=== PATIENT | male | born 1945 | race Caucasian/White ===

== ENCOUNTER 2022-02-27 18:33 | Inpatient (IN) | payer OTHER ==
--- NOTE | 2022-02-27 20:30 | RAD REPORT ---
EXAM DESCRIPTION: RAD - Chest Single View - 02/27/2022 8:17 pm CLINICAL HISTORY: COUGH COMPARISON: None TECHNIQUE: AP portable chest image was obtained 02/27/2022 8:17 pm . FINDINGS: Lungs are clear. Heart and vasculature are normal. No measurable pleural effusion and no p neumothorax. No acute bony abnormality seen. No acute aortic findings suspected. IMPRESSION: No acute cardiopulmonary process.
--- NOTE | 2022-02-27 20:41 | RAD REPORT ---
EXAM DESCRIPTION: CT - Stone Protocol - 02/27/2022 8:30 pm CLINICAL HISTORY: Flank pain, kidney stone suspected COMPARISON: No comparisons TECHNIQUE: Axial 3 mm thick images were obtained without oral or IV contrast. The [id number] span s the entirety of the system including uppermost abdomen and lung bases. All CT scans are performed using dose optimization technique as appropriate and may include automated exposure control or mA/KV adjustment according to patient size. FINDINGS: No acute lung base findings. Dense coronary artery calcifications are present. No cardiome dennis or pericardial effusion. Mild to moderate symmetric bilateral gynecomastia noted. No hydronephrosis is present and no obstructing ureteral calculi. Renal vascular calcifications are p resent. No suspicious renal masses. Isodense masses and pyelonephritis are not excluded on a stone pr otocol CT scan. No significant adrenal finding. Partially filled urinary bladder shows no suspicious finding. Prostate gland is prominent. No adjacent edema, stranding or lymphadenopathy. Prominent pros auguste gland projects into the bladder base. Imaged portions of the liver, spleen and pancreas show no suspicious findings on non-contrast imaging . No gallbladder or biliary tree abnormality identified. No suspicious bowel findings. No mass or bulky lymphadenopathy. Small incidental umbilical fat only hernia present. Moderate bilate ral fat filled inguinal hernias are present. No free air, free fluid or inflammatory stranding. No significant bony abnormality. IMPRESSION: Noncontrast CT abdomen and pelvis examination shows no acute finding. Isodense masses and pyelonephritis are not excluded on stone protocol. Cystitis or prostatitis also n ot excluded. Isodense masses and pyelonephritis are not excluded on stone protocol technique.
[2022-02-27] MEDS ORDERED: NA CHLORIDE 0.9% 1,000 ML ONE ×2 (20:58→22:05)
[2022-02-27] MEDS ORDERED: CEFTRIAXONE 1000 MG/VIAL ONE ×2 (20:58→22:05)
[2022-02-27 21:52] LABS: Urine Blood 3+ (Negative); Urine Glucose Negative (Negative); Urine Protein 2+ (Negative)
[2022-02-27 22:06] LABS: Protime INR 1.26
[2022-02-27 22:09] LABS: Calcium Oxalate Crystals- Ur FEW (NONE SEEN); Urine Bacteria LOADED /HPF (NONE SEEN)
[2022-02-27 22:10] LABS: Urine Mucus SLIGHT /HPF (NONE SEEN)
[2022-02-27 22:12] LABS: Absolute Lymphocytes (CBC) 1.2 K/uL (0.7-4.9); Hematocrit 36.4 % (39.6-49.0); Lymphocytes % 7.7 % (15.3-44.8); MCV 86.9 fL (80-100); MPV 9.4 fL (7.6-11.3); RBC Red Blood Cell Count 4.19 M/uL (4.33-5.43)
[2022-02-27 22:22] LABS: Albumin 3.6 g/dL (3.4-5.0); Bilirubin Direct 0.2 mg/dL (0-0.2); Bilirubin Total 0.9 mg/dL (0.2-1.0); Magnesium 1.9 mg/dL (1.8-2.4); Potassium 3.8 mmol/L (3.5-5.1); Protein, Total 7.9 g/dL (6.4-8.2); Troponin High Sensitivity 10.8 pg/mL (<58.9)
--- NOTE | 2022-02-27 22:33 | ER ---
Nurse's Notes [facility] Name: Shabbir Gaines Age: 76 yrs Sex: Male : 1945 Arrival Date: 02/27/2022 Time: 19:01 Bed 2 Private MD: Diagnosis: Weakness;Elevated white blood cell count;Altered mental status, unspecified;Acute cystitis;UTI/ Urinary tract infection, site not specified Presentation: 02/27 19:28 Chief complaint: Spouse and/or significant other states: Per Grandson, patient is ke1 acting like when he is dehydrated, refuse to drink water and drinks only soda, lightheaded and increase weakness on ambulation. 19:28 Method Of Arrival: EMS ke 19:39 Coronavirus screen: Vaccine status: Patient reports being unvaccinated. Ebola Screen: ke1 No symptoms or risks identified at this time. No acute neurological deficit is noted. Initial Sepsis Screen: Does the patient meet any 2 criteria? No. Patient's initial sepsis screen is negative. Does the patient have a suspected source of infection? No. Patient's initial sepsis screen is negative. Risk Assessment: Do you want to hurt yourself or someone else? Patient reports no desire to harm self or others. Onset of symptoms was February 26, 2022 at 17:00. 19:39 Acuity: JOSE MIGUEL 3 ke1 Triage Assessment: 19:43 The onset of the patients symptoms was February 26, 2022 at 18:00. General: Appears in no ke1 apparent distress. Behavior is calm, cooperative. Pain: Denies pain. Neuro: Level of Consciousness is awake, alert, Oriented to person, place, Reports . 19:44 Respiratory: Airway is patent Respiratory effort is even, unlabored. ke1 Historical: - Allergies: 19:41 PENICILLINS; ke1 - PMHx: 19:41 Diabetes mellitus; stroke; Hypertensive disorder; ke1 19:44 Dementia; ke1 - Immunization history:: Adult Immunizations not up to date. - Social history:: Smoking status: Patient/guardian denies using tobacco, the patient reports quitting approximately 30 years ago. Screenin:08 Abuse screen: Denies threats or abuse. Nutritional screening: No deficits noted. ke1 Tuberculosis screening: No symptoms or risk factors identified. Fall Risk No fall in past 12 months (0 pts). Secondary diagnosis (15 points) dementia, IV access (20 points). Ambulatory Aid- Crutches/Cane/Walker (15 pts). Gait- Weak (10 pts.). Mental Status- Oriented to own ability (0 pts). Total Chavis Fall Scale indicates High Risk Score (45 or more points). Fall prevention measures have been instituted. Side Rails Up X 2 Frequent Obs/Assessments Occuring Family Present and informed to notify staff if the need to leave the bedside. Assessment: 22:26 Reassessment: Patient and/or family updated on plan of care and expected duration. Pain ke1 level reassessed. Patient is alert, oriented x 3, equal unlabored respirations, skin warm/dry/pink. Patient denies pain at this time. 23:30 Reassessment: No changes from previously documented assessment. ke1 Vital Signs: 19:39 BP 120 / 63; Pulse 90; Resp 17; Temp 99.6; Pulse Ox 96% on R/A; Weight 72.57 kg; Height ke1 5 ft. 5 in. (165.10 cm); Pain 0/10; 23:57 BP 126 / 71; Pulse 86; Resp 17; Temp 99.1; Pulse Ox 95% ; Pain 0/10; ke1 19:39 Body Mass Index 26.63 (72.57 kg, 165.10 cm) formerly [facility] ED Course: 19:01 Patient arrived in ED. formerly [facility] 19:17 Shabbir Palmer MD is Attending Physician. [facility] 19:28 Adonis Mar, GHAZAL is Primary Nurse. ke1 19:41 Triage completed. ke1 20:19 XRAY Chest (1 view) In Process Unspecified. EDMS 20:32 CT Stone Protocol In Process Unspecified. EDMS 22:00 Arm band placed on. ke1 22:06 Inserted saline lock: in left EJ, using aseptic technique. ,using aseptic technique. by ke1 MD palmer. 22:32 Mak Francois MD is Hospitalizing Provider. [facility] 02/28 00:00 No provider procedures requiring assistance completed. Patient admitted, IV remains in ke1 place. 00:01 Bed in low position. Call light in reach. Side rails up X 1. Side rails up X2. ke1 Administered Medications: 02/27 22:07 Drug: Rocephin (cefTRIAXone) 1 grams Route: IV; Rate: per protocol; Site: left jugular; ke1 22:10 Follow up: IV Status: Completed infusion ke1 22:07 Drug: NS 0.9% 1000 ml Route: IV; Rate: 1 bolus; Site: left jugular; ke1 23:46 Follow up: IV Status: Completed infusion ke1 Medication: 02/28 00:01 VIS not applicable for this client. ke1 Outcome: 02/27 22:33 Decision to Hospitalize by Provider. kwesi 02/28 00:01 Admitted to Med/surg ke1 Condition: good Discharge instructions given to patient. 00:02 Patient left the ED. ke1 Signatures: Dispatcher [employer] EDShabbir Plaza MD MD cha Herrera, Deanna formerly [facility] Adonis Mar RN RN ke1 Corrections: (The following items were deleted from the chart) 02/27 22:26 22:26 VAN Scoring: Arm Drift: ke1 ke1
--- NOTE | 2022-02-27 22:33 | EDPHYS ---
Physician Documentation [facility] Name: Shabbir Gaines Age: 76 yrs Sex: Male : 1945 Arrival Date: 02/27/2022 Time: 19:01 Bed 2 Private MD: ED Physician Shabbir Palmer HPI: 02/27 20:48 This 76 yrs old Male presents to ER via EMS with complaints of Weakness, kwesi Urinary Problem. 20:48 weakness, decreased po, low grade fevers, ams. Onset: The symptoms/episode kwesi began/occurred 2 day(s) ago. The patient reports fever, that was measured at 2 degrees Fahrenheit. Modifying factors: there are no obvious modifying factors. Associated signs and symptoms: Pertinent positives: altered mental status,\\E\\ chills. Severity of symptoms: At their worst the symptoms were mild moderate in the emergency department the symptoms are unchanged. The patient has experienced similar episodes in the past, multiple times. Historical: - Allergies: 19:41 PENICILLINS; ke1 - PMHx: 19:41 Diabetes mellitus; stroke; Hypertensive disorder; ke1 19:44 Dementia; ke1 - Immunization history:: Adult Immunizations not up to date. - Social history:: Smoking status: Patient/guardian denies using tobacco, the patient reports quitting approximately 30 years ago. ROS: 20:48 Constitutional: Negative for fever, chills, and weight loss, Eyes: Negative for injury, kwesi pain, redness, and discharge, ENT: Negative for injury, pain, and discharge, Neck: Negative for injury, pain, and swelling, Cardiovascular: Negative for chest pain, palpitations, and edema, Respiratory: Negative for shortness of breath, cough, wheezing, and pleuritic chest pain, Abdomen/GI: Negative for abdominal pain, nausea, vomiting, diarrhea, and constipation, Back: Negative for injury and pain, : Negative for injury, bleeding, discharge, and swelling, MS/Extremity: Negative for injury and deformity, Skin: Negative for injury, rash, and discoloration, Psych: Negative for depression, anxiety, suicide ideation, homicidal ideation, and hallucinations, Allergy/Immunology: Negative for hives, rash, and allergies, Endocrine: Negative for neck swelling, polydipsia, polyuria, polyphagia, and marked weight changes, Hematologic/Lymphatic: Negative for swollen nodes, abnormal bleeding, and unusual bruising. 20:48 Neuro: Positive for altered mental status, weakness. Exam: 20:48 Constitutional: This is a well developed, well nourished patient who is awake, alert, kwesi and in no acute distress. Head/Face: Normocephalic, atraumatic. Eyes: Pupils equal round and reactive to light, extra-ocular motions intact. Lids and lashes normal. Conjunctiva and sclera are non-icteric and not injected. Cornea within normal limits. Periorbital areas with no swelling, redness, or edema. ENT: Nares patent. No nasal discharge, no septal abnormalities noted. Tympanic membranes are normal and external auditory canals are clear. Oropharynx with no redness, swelling, or masses, exudates, or evidence of obstruction, uvula midline. Mucous membranes moist. Neck: Trachea midline, no thyromegaly or masses palpated, and no cervical lymphadenopathy. Supple, full range of motion without nuchal rigidity, or vertebral point tenderness. No Meningismus. Chest/axilla: Normal chest wall appearance and motion. Nontender with no deformity. No lesions are appreciated. Cardiovascular: Regular rate and rhythm with a normal S1 and S2. No gallops, murmurs, or rubs. Normal PMI, no JVD. No pulse deficits. Respiratory: Lungs have equal breath sounds bilaterally, clear to auscultation and percussion. No rales, rhonchi or wheezes noted. No increased work of breathing, no retractions or nasal flaring. Abdomen/GI: Soft, non-tender, with normal bowel sounds. No distension or tympany. No guarding or rebound. No evidence of tenderness throughout. Back: No spinal tenderness. No costovertebral tenderness. Full range of motion. Skin: Warm, dry with normal turgor. Normal color with no rashes, no lesions, and no evidence of cellulitis. MS/ Extremity: Pulses equal, no cyanosis. Neurovascular intact. Full, normal range of motion. Neuro: Awake and alert, GCS 15, oriented to person, place, time, and situation. Cranial nerves II-XII grossly intact. Motor strength 5/5 in all extremities. Sensory grossly intact. Cerebellar exam normal. Normal gait. Psych: Awake, alert, with orientation to person, place and time. Behavior, mood, and affect are within normal limits. 22:34 ECG was reviewed by the Attending Physician. [facility] Vital Signs: 19:39 BP 120 / 63; Pulse 90; Resp 17; Temp 99.6; Pulse Ox 96% on R/A; Weight 72.57 kg; Height ke1 5 ft. 5 in. (165.10 cm); Pain 0/10; 23:57 BP 126 / 71; Pulse 86; Resp 17; Temp 99.1; Pulse Ox 95% ; Pain 0/10; ke1 19:39 Body Mass Index 26.63 (72.57 kg, 165.10 cm) ke1 Procedures: 21:55 Peripheral line: by aseptic technique a peripheral line was placed in the left external [facility] jugular vein. MDM: 19:18 Patient medically screened. [facility] 21:32 Differential diagnosis: viral Infection, bacterial infection, URI, bronchitis, kwesi pneumonia UTI, gastroenteritis. Differential Diagnosis altered mental status, sepsis, flu. Data reviewed: vital signs, nurses notes, lab test result(s), EKG, radiologic studies, CT scan, plain films. Data interpreted: quality assurance monitor final: rate is 90 beats/min, rhythm is regular, Pulse oximetry: on room air is 96 %. Test interpretation: by ED physician or midlevel provider: ECG, plain radiologic studies. 02/27 19:52 Order name: Basic Metabolic Panel; Complete Time: 22:29 [facility] 02/27 19:52 Order name: CBC with Diff; Complete Time: 22:29 [facility] 02/27 19:52 Order name: LFT's; Complete Time: 22:29 [facility] 02/27 19:52 Order name: Magnesium; Complete Time: 22:29 [facility] 02/27 19:52 Order name: NT PRO-BNP; Complete Time: 22:29 [facility] 02/27 19:52 Order name: PT-INR; Complete Time: 22:29 [facility] 02/27 19:52 Order name: Troponin HS; Complete Time: 22:29 [facility] 02/27 19:52 Order name: XRAY Chest (1 view); Complete Time: 20:47 [facility] 02/27 19:52 Order name: Blood Culture Adult (2) [facility] 02/27 19:52 Order name: Lactate; Complete Time: 22:29 [facility] 02/27 19:52 Order name: Urine Culture [facility] 02/27 19:52 Order name: UA MICROSCOPIC; Complete Time: 22:29 [facility] 02/27 19:53 Order name: SARS-COV-2 RT PCR (Document "Date of Onset" if Symptomatic); Complete Time: [facility] 23:14 02/27 21:52 Order name: Urine Dipstick-Ancillary; Complete Time: 22:29 EDMS 02/27 19:52 Order name: EKG; Complete Time: 19:53 [facility] 02/27 19:52 Order name: Cardiac monitoring; Complete Time: 20:49 [facility] 02/27 19:52 Order name: EKG - Nurse/Tech; Complete Time: 22:26 [facility] 02/27 19:52 Order name: IV Saline Lock; Complete Time: 20:49 [facility] 02/27 19:52 Order name: Labs collected and sent; Complete Time: 20:49 [facility] 02/27 19:52 Order name: O2 Per Protocol; Complete Time: 20:49 [facility] 02/27 19:52 Order name: O2 Sat Monitoring; Complete Time: 20:49 [facility] 02/27 19:52 Order name: CT Stone Protocol; Complete Time: 20:47 [facility] 02/27 19:52 Order name: Urine Dipstick-Ancillary (obtain specimen); Complete Time: 21:58 [facility] EC:34 Rate is 83 beats/min. Rhythm is regular. QRS [place] is Normal. SC interval is normal. QRS kwesi interval is normal. QT interval is normal. No Q waves. T waves are Normal. No ST changes noted. Clinical impression: NSR w/ Non-specific ST/T Changes and No evidence of ischemia. Interpreted by me. Reviewed by me. Administered Medications: 22:07 Drug: Rocephin (cefTRIAXone) 1 grams Route: IV; Rate: per protocol; Site: left jugular; ke1 22:10 Follow up: IV Status: Completed infusion ke1 22:07 Drug: NS 0.9% 1000 ml Route: IV; Rate: 1 bolus; Site: left jugular; ke1 23:46 Follow up: IV Status: Completed infusion ke1 Disposition Summary: 02/27/22 22:33 Hospitalization Ordered Hospitalization Status: Inpatient Admission kwesi Provider: Mak Francois cha Condition: Fair kwesi Problem: new kwesi Symptoms: have improved kwesi Bed/Room Type: Standard kwesi Location: Intensive Care Unit(02/27/22 23:13) cg Room Assignment: 7-(02/27/22 23:13) cg Diagnosis - Weakness kwesi - Elevated white blood cell count kwesi - Altered mental status, unspecified kwesi - Acute cystitis kwesi - UTI/ Urinary tract infection, site not specified kwesi Forms: - Medication Reconciliation Form kwesi - SBAR form kwesi Signatures: Dispatcher [employer] Shabbir Blanco MD MD cha Garcia, Cindy RN RN Adonis Spaulding RN RN ke1 Venus Ro PA PA sb3 Corrections: (The following items were deleted from the chart) : 22:33 Telemetry/MedSurg (Inpatient) [facility] : 22:33 [facility]
[2022-02-28 00:25] VITALS: BMI 26.9
[2022-02-28] MEDS ORDERED: ONDANSETRON 4 MG/2 ML VIAL IV PRN (00:25)
[2022-02-28] MEDS ORDERED: ACETAMINOPHEN 500 MG TAB PO PRN (00:25)
--- NOTE | 2022-02-28 00:25 | P.HP ---
Certification for Inpatient Patient admitted to: Inpatient With expected LOS: <2 Midnights Patient will require the following post-hospital care: None Practitioner: I am a practitioner with admitting privileges, knowledge of patient current condition, hospital course, and medical plan of care. Services: Services provided to patient in accordance with Admission requirements found in Title 42 Section 412.3 of the Code of Federal Regulations <Venus Ro - Last Filed: 02/28/22 03:41> Patient History Date of Service: 02/28/22 Reason for admission: Urosepsis History of Present Illness: Patient is a 76-year-old male with type 2 diabetes, CVA, HTN, and dementia who presented to the ED with grandson who reports increasing confusion and decreased PO intake. Labs significant for BNP 1000, lactic acid 2.6, WBC 15, urine positive for UTI. He was given 1 L fluid and Rocephin in the ED. Vital signs stable. Upon my assessment, patient reports feeling better and wants to go home. Grandson states that patient has been admitted for septic shock secondary to UTI in the past. Patient is admitted for evaluation and treatment. Home medications list reviewed: Yes - Past Medical/Surgical History Diabetic: Yes -: Type 2 Diabetes -: CVA -: HTN -: Dementia Past Surgical History: Reviewed- Non-Contributory Psychosocial/ Personal History: Patient lives at home with grandson. - Family History Family History: Reviewed- Non-Contributory - Social History Smoking Status: Former smoker Alcohol use: No CD- Drugs: No Caffeine use: No Place of Residence: Home <JayjayVenus - Last Filed: 02/28/22 03:41> Date of Service: 02/28/22 <Scott Mata - Last Filed: 02/28/22 22:45> Allergies Penicillins Allergy (Verified 02/28/22 00:25) Anaphylaxis Review of Systems 10-point ROS is otherwise unremarkable <Venus Ro - Last Filed: 02/28/22 03:41> Physical Examination - Vital Signs Temperature: 99.1 F Blood Pressure: 126/71 Pulse: 86 Respirations: 17 - Physical Exam General: Alert, In no apparent distress HEENT: Atraumatic, PERRLA, EOMI, Sclerae nonicteric Neck: Supple, 2+ carotid pulse no bruit, No LAD, Without JVD or thyroid abnormality Respiratory: Clear to auscultation bilaterally, Normal air movement Cardiovascular: Regular rate/rhythm, Normal S1 S2 Gastrointestinal: Normal bowel sounds, No tenderness Musculoskeletal: No tenderness Integumentary: No rashes Neurological: Normal speech, Normal strength at 5/5 x4 extr, Normal tone, Normal affect - Studies Laboratory Data (last 24 hrs) 02/27/22 21:47: PT 13.9 H, INR 1.26 02/27/22 21:47: WBC 15.6 H, Hgb 12.0 L, Hct 36.4 L, Plt Count 173 02/27/22 21:47: Sodium 136, Potassium 3.8, BUN 18, Creatinine 1.29, Glucose 155 H, Magnesium 1.9, Total Bilirubin 0.9, AST 20, ALT 27, Alkaline Phosphatase 51 <Venus Ro - Last Filed: 02/28/22 03:41> Assessment and Plan - Problems (Diagnosis) (1) UTI (urinary tract infection) Current Visit: Yes Status: Acute Qualifiers: Urinary tract infection type: acute cystitis Hematuria presence: with hematuria Qualified Code(s): N30.01 - Acute cystitis with hematuria (2) Sepsis Current Visit: Yes Status: Acute Qualifiers: Sepsis type: sepsis due to unspecified organism Sepsis acute organ dysfunction status: without acute organ dysfunction Qualified Code(s): A41.9 - Sepsis, unspecified organism (3) Type 2 diabetes mellitus Current Visit: Yes Status: Chronic Qualifiers: Diabetes mellitus shelter insulin use: unspecified terminal operations supervisor insulin use status Diabetes mellitus complication status: with kidney complications Diabetes mellitus complication detail: with chronic kidney disease Chronic kidney disease stage: stage 3 (moderate) Chronic kidney disease stage 3 subtype: stage 3a (GFR 45-59) Qualified Code(s): E11.22 - Type 2 diabetes mellitus with diabetic chronic kidney disease; N18.31 - Chronic kidney disease, stage 3a (4) Hypertension Current Visit: Yes Status: Chronic Qualifiers: Hypertension type: primary hypertension Qualified Code(s): I10 - Essential (primary) hypertension (5) Dementia Current Visit: Yes Status: Chronic Qualifiers: Dementia type: unspecified type Dementia behavioral disturbance: without behavioral disturbance Qualified Code(s): F03.90 - Unspecified dementia without behavioral disturbance - Plan -Continue Rocephin. Follow blood and urine cultures -Continue IV fluids. Encourage PO intake -ACHS accu checks with mild sliding scale insulin and diabetic diet -Monitor and replete electrolytes per protocol -Reconcile and continue home medications -Lovenox for VTE ppx -Full code Discharge Plan: Home Plan to discharge in: 48 Hours - Advance Directives Does patient have a Living Will: No Does patient have a Durable POA for Healthcare: No <Veuns Ro - Last Filed: 02/28/22 03:41> Date of Service: 02/28/22 SUBJECTIVE: Agree with the HPI as mentioned above OBJECTIVE: Vital Signs: reviewed General: WNL HEENT:WNL CV: WNL Lungs: WNL Abd: WNL Ext: WNL ASSESSMENT: 1. UTI 2. Altered mental status PLAN: Plan as mentioned above <Scott Mata - Last Filed: 02/28/22 22:45>
[2022-02-28] MEDS: NA CHLORIDE 0.9% 1,000 ML IV SCH ×2 (03:06→11:28)
[2022-02-28 05:39] LABS: Hematocrit 32.7 % (39.6-49.0); Lymphocytes % 6.5 % (15.3-44.8); MCV 86.7 fL (80-100); MPV 9.2 fL (7.6-11.3); RBC Red Blood Cell Count 3.77 M/uL (4.33-5.43)
[2022-02-28 05:58] LABS: Magnesium 1.6 mg/dL (1.8-2.4); Potassium 3.5 mmol/L (3.5-5.1)
[2022-02-28] MEDS: INSULIN -REGULAR HUMAN 50 UNIT/0.5 ML ML SQ SCH ×4 (07:30→21:00)
--- NOTE | 2022-02-28 08:20 | EKG ---
Test Date: 2022-02-27 Test Time: 22:16:16 Leather Case Finisher: MALCOLM MEASUREMENT RESULTS: Intervals: Rate: 83 IA: QRSD: 76 QT: 370 QTc: 434 [place]: P: IA: QRS: 18 T: 73 INTERPRETIVE STATEMENTS: Accelerated Junctional rhythm Nonspecific T wave abnormality Abnormal ECG Compared to ECG 02/27/2022 22:13:58 Accelerated junctional rhythm now present T-wave abnormality now present Electronically Signed On 02-28-22 08:18:14 CDT by Mahesh Barger
--- NOTE | 2022-02-28 08:20 | EKG ---
Test Date: 2022-02-27 Test Time: 22:13:58 Tricot Knitter: MALCOLM MEASUREMENT RESULTS: Intervals: Rate: 0 IN: QRSD: 0 QT: 0 QTc: 0 [place]: P: IN: QRS: 0 T: 0 INTERPRETIVE STATEMENTS: No QRS complexes found, no ECG analysis possible No previous ECG available for comparison Electronically Signed On 02-28-22 08:18:16 CDT by Mahesh Barger
[2022-02-28] MEDS: ENOXAPARIN 40 MG/0.4 ML SQ SCH (09:00)
[2022-02-28] MEDS: ACETAMINOPHEN 500 MG TAB PO PRN ×2 (10:00→20:41)
[2022-02-28] MEDS ORDERED: MAGNESIUM SULFATE 1 gm IVPB 1 GM/100 ML BAG IV ONE (11:18)
[2022-02-28] MEDS ORDERED: POTASSIUM CL SA 10 MEQ TAB PO ONE (11:18)
[2022-02-28] MEDS ORDERED: CEFTRIAXONE 1,000 MG in NA CHLORIDE 0.9% 50 ML IVPB SCH (18:00)
[2022-03-01 02:00] VITALS: O2SAT 99
[2022-03-01 04:08] LABS: Absolute Lymphocytes (CBC) 0.9 K/uL (0.7-4.9); Hematocrit 32.6 % (39.6-49.0); Lymphocytes % 6.7 % (15.3-44.8); MCV 87.6 fL (80-100); MPV 9.6 fL (7.6-11.3); RBC Red Blood Cell Count 3.72 M/uL (4.33-5.43)
[2022-03-01] MEDS: NA CHLORIDE 0.9% 1,000 ML IV SCH ×2 (04:09→06:25)
[2022-03-01 04:19] LABS: Magnesium 1.9 mg/dL (1.8-2.4); Potassium 3.7 mmol/L (3.5-5.1)
[2022-03-01] MEDS: INSULIN -REGULAR HUMAN 50 UNIT/0.5 ML ML SQ SCH ×2 (07:30→11:30)
[2022-03-01] MEDS ORDERED: POTASSIUM CL SA 10 MEQ TAB PO ONE (09:00)
[2022-03-01] MEDS: ENOXAPARIN 40 MG/0.4 ML SQ SCH (09:00)
[2022-03-01 12:49] VITALS: BP 124/71; TEMP 97.4
--- NOTE | 2022-03-04 21:16 | P.PN ---
Subjective Date of Service: 02/28/22 Patient still confused. He is very lethargic and difficult to arouse. He had a probable wake patient up and he has been slow to wake up today. Continue with IV antibiotic therapy. Patient with elevated lactate level. Patient with tachyarrhythmia on arrival. Patient also with significant leukocytosis which is slightly improved. Blood cultures. Review of Systems 10-point ROS is otherwise unremarkable Physical Examination - Vital Signs Temperature: 97.4 F Blood Pressure: 124/71 Pulse: 78 Respirations: 18 Pulse Ox (%): 98 - Physical Exam General: Confused HEENT: Atraumatic, PERRLA, EOMI Neck: Supple, JVD not distended Respiratory: Clear to auscultation bilaterally, Normal air movement Cardiovascular: Regular rate/rhythm, Normal S1 S2 Gastrointestinal: Normal bowel sounds, No tenderness Musculoskeletal: No tenderness Integumentary: No rashes Neurological: Other ( Generalized weakness), Abnormal strength Lymphatics: No axilla or inguinal lymphadenopathy - Studies Medications List Reviewed: Yes Assessment & Plan - Problems (Diagnosis) (1) Toxic encephalopathy Status: Acute (2) Lactic acidosis Status: Acute (3) Sepsis Status: Acute Qualifiers: Sepsis type: sepsis due to unspecified organism Sepsis acute organ dysfunction status: without acute organ dysfunction Qualified Code(s): A41.9 - Sepsis, unspecified organism (4) UTI (urinary tract infection) Status: Acute Qualifiers: Urinary tract infection type: acute cystitis Hematuria presence: with hematuria Qualified Code(s): N30.01 - Acute cystitis with hematuria (5) Dementia Status: Chronic Qualifiers: Dementia type: unspecified type Dementia behavioral disturbance: without behavioral disturbance Qualified Code(s): F03.90 - Unspecified dementia without behavioral disturbance (6) Hypertension Status: Chronic Qualifiers: Hypertension type: primary hypertension Qualified Code(s): I10 - Essential (primary) hypertension (7) Type 2 diabetes mellitus Status: Chronic Qualifiers: 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 Continue with IV fluids 2. IV antibiotics 3. Monitor lactic acid level 4. Continue with neuro checks 5. Wait for cultures 6. monitor white blood cell count 7. continue monitoring renal function 8. Gi and DVT prophylaxis - Advance Directives Does patient have a Living Will: No Does patient have a Durable POA for Healthcare: No - Code Status/Comfort Care Code Status Assessed: Yes Code Status: Full Code Critical Care: No Time Spent Managing PTS Care (In Minutes): 35
--- NOTE | 2022-03-04 21:17 | P.DS ---
Discharge Date: 03/01/22 Disposition: ROUTINE DISCHARGE Discharge Condition: GOOD Reason for Admission: Urosepsis - Problems (1) Toxic encephalopathy Status: Acute (2) Lactic acidosis Status: Acute (3) Sepsis Status: Acute Qualifiers: Sepsis type: sepsis due to unspecified organism Sepsis acute organ dy sfunction status: without acute organ dysfunction Qualified Code(s): A41.9 - Sepsis, unspecified organism (4) UTI (urinary tract infection) Status: Acute Qualifiers: Urinary tract infection type: acute cystitis Hematuria presence: with hematuria Qualified Code(s): N30.01 - Acute cystitis with hematuria (5) Dementia Status: Chronic Qualifiers: Dementia type: unspecified type Dementia behavioral disturbance: without behavioral disturbance Qualified Code(s): F03.90 - Unspecified dementia without behavioral disturbance (6) Hypertension Status: Chronic Qualifiers: Hypertension type: primary hypertension Qualified Code(s): I10 - Essential (primary) hypertension (7) Type 2 diabetes mellitus Status: Chronic Qualifiers: 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: unspecified halfway insulin use status Diabetes mellitus complication status: with kidney complications Diabetes mellitus complication detail: with chronic kidney disease Chronic kidney disease stage: stage 3 (moderate) Chronic kidney disease stage 3 subtype: stage 3a (GFR 45-59) Qualified Code(s): E11.22 - Type 2 diabetes mellitus with diabetic chronic kidney disease; N18.31 - Chronic kidney disease, stage 3a Brief History of Present Illness: Patient is a 76-year-old male with type 2 diabetes, CVA, HTN, and dementia who presented to the ED with grandson who reports increasing confusion and decreased PO intake. Labs significant for BNP 1000, lactic acid 2.6, WBC 15, urine positive for UTI. He was given 1 L fluid and Rocephin in the ED. Vital signs stable. Upon my assessment, patient reports feeling better and wants to go home. Grandson states that patient has been admitted for septic shock secondary to UTI in the past. Patient is admitted for evaluation and treatment. Hospital Course: patient was treated aggressively on arrival. Patient given aggressive IV hydration along with IV antibiotics. Patient's white blood cell count has slowly trended downward. Patient had lactic acidosis on arrival but this is improved as well. Patient's also count is still 15,000. Overall doing much better. Patient is afebrile. Neurologically he is much improved as well. He is following commands at this time. He is able to answer questions. His father had been downtrending but overall he is doing well and his mentation has improved and he should be able to take oral antibiotics. Will go ahead and discharge him home. He grew out E coli from his urine which is sensitive to most antibiotics. Patient will follow-up with PCP as an outpatient. Vital Signs/Physical Exam: Temp Pulse Resp BP Pulse Ox 97.4 F 78 18 124/71 98 03/04/22 21:15 03/04/22 21:15 03/04/22 21:15 03/04/22 21:15 03/04/22 21:15 General: Alert, In no apparent distress, Oriented x3 Laboratory Data at Discharge: WBC 13.9 K/uL (4.3-10.9) H 03/01/22 03:34 Hgb 10.9 g/dL (13.6-17.9) L 03/01/22 03:34 Hct 32.6 % (39.6-49.0) L 03/01/22 03:34 Plt Count 119 K/uL (152-406) L D 03/01/22 03:34 PT 13.9 SECONDS (9.5-12.5) H 02/27/22 21:47 INR 1.26 02/27/22 21:47 Sodium 136 mmol/L (136-145) 03/01/22 03:34 Potassium 3.7 mmol/L (3.5-5.1) 03/01/22 03:34 BUN 12 mg/dL (7-18) 03/01/22 03:34 Creatinine 0.80 mg/dL (0.55-1.3) 03/01/22 03:34 Glucose 153 mg/dL (74-106) H 03/01/22 03:34 Magnesium 1.9 mg/dL (1.8-2.4) 03/01/22 03:34 Total Bilirubin 0.9 mg/dL (0.2-1.0) 02/27/22 21:47 AST 20 U/L (15-37) 02/27/22 21:47 ALT 27 U/L (12-78) 02/27/22 21:47 Alkaline Phosphatase 51 U/L (45-117) 02/27/22 21:47 Triglycerides 64 mg/dL (<150) 02/28/22 05:12 Cholesterol 70 mg/dL (<200) 02/28/22 05:12 HDL Cholesterol 38 mg/dL (40-60) L 02/28/22 05:12 Cholesterol/HDL Ratio 1.84 02/28/22 05:12 Home Medications: Atorvastatin Calcium [Lipitor] 1 tab PO BEDTIME 02/28/22 Cholecalciferol (Vitamin D3) [Vitamin D3] 1 tab PO DAILY 02/28/22 Clopidogrel Bisulfate [Plavix*] 1 tab PO DAILY 02/28/22 Ferrous Sulfate 1 mg PO BID 02/28/22 Furosemide 1 tab PO DAILY 02/28/22 Lisinopril [Zestril] 1 tab PO DAILY 02/28/22 Metformin HCl [Glucophage*] 1 tab PO BID 02/28/22 Mirtazapine 30 mg PO BEDTIME 02/28/22 Niacinamide 1 tab PO DAILY 02/28/22 Pioglitazone [Actos*] 1 tab PO DAILY 02/28/22 Potassium Chloride [K-Dur] 1 tab PO M,W,F 02/28/22 Sertraline [Zoloft*] 1 tab PO DAILY 02/28/22 Cefdinir [Omnicef] 300 mg PO BID #20 capsule 03/01/22 Smz./Tmp. [Bactrim Ds 800 MG/160 MG] 1 each PO DAILY #7 tab 03/01/22 New Medications: Smz./Tmp. [Bactrim Ds 800 MG/160 MG] 1 each PO DAILY #7 tab Cefdinir [Omnicef] 300 mg PO BID #20 capsule Physician Discharge Instructions: OK TO DC IV AND DC HOME FOLLOW-UP WITH PRIMARY CARE PROVIDER IN 1-2 WEEKS FOLLOW-UP WITH CARDIOLOGY IN 1-2 WEEKS RETURN TO THE ER IF Symptoms worsen CALL DR. SIGALA AT [phone] IF ANY QUESTIONS REGARDING HOSPITAL STAY. PLEASE CALL THE FLOOR AT [phone] IF ANY MEDICATION OR NURSING QUESTIONS. Diet: AHA Activity: Fall precautions Followup: Mahesh Barger MD [ACTIVE - CAN ADMIT] - NONE,NONE [Primary Care Provider] - Time spent managing pt's care (in minutes): 35
== END 2022-03-01 14:30 | disposition home or self-care (01) | DRG 871 ==
LOC: ER 18:33 → ERHOLD 23:16 → 3RD-ICU 23:56 → 2ND 02-28 11:35
PROVIDERS: ADMIT Hospitalist; ATTEND Hospitalist
DX: A41.9 Sepsis, unspecified organism (principal); G93.41 Metabolic encephalopathy; E87.2 Acidosis; N30.01 Acute cystitis with hematuria; R65.20 Severe sepsis without septic shock; B96.20 Unspecified Escherichia coli [E. coli] as the cause of diseases classified elsewhere; F03.90 Unspecified dementia, unspecified severity, without behavioral disturbance, psychotic disturbance, mood disturbance, and anxiety; I12.9 Hypertensive chronic kidney disease with stage 1 through stage 4 chronic kidney disease, or unspecified chronic kidney disease; E11.22 Type 2 diabetes mellitus with diabetic chronic kidney disease; N18.31 Chronic kidney disease, stage 3a; Z86.73 Personal history of transient ischemic attack (TIA), and cerebral infarction without residual deficits; Z87.891 Personal history of nicotine dependence; Z20.822 Contact with and (suspected) exposure to COVID-19
CPT/HCPCS: 36415; 71045; 74176; 76377; 80048; 80061; 80076; 81003; 81015; 82947; 83605; 83735; 83880; 84484; 85025; 85610; 87040; 87077; 87086; 87088; 87186; 93005; 96361; 96374; 99285; J1650; J3475; J7030; U0003